=== PATIENT | female | born 1975 | race Caucasian/White ===

== ENCOUNTER 2016-04-21 21:39 | Emergency (ER) | payer OTHER ==
[2016-04-21] MEDS ORDERED: TORADOL IV ONE (22:14)
[2016-04-21] MEDS ORDERED: ZOFRAN IV ONE (22:14)
[2016-04-21 22:34] LABS: MANUAL DIFF NEEDED? NO
--- NOTE | 2016-04-21 22:34 | PROVIDER DOCUMENTATION ---
Addendum entered and electronically signed by Korey Light Scribe 04/21/16 23:42 : Departure - Departure Time of Disposition Order: 23:42 DIAGNOSIS: Kidney stone, Lung nodule seen on imaging study UTI (urinary tract infection) Qualifiers: Urinary tract infection type: site unspecified Hematuria presence: with hematuria Qualified Code(s): N39.0 - Urinary tract infection, site not specified Disposition: HOME 01 Certified Medical Emergency: Emergent Condition: Stable Additional Instructions: LEFT LOWER LOBE LUNG NODULE SEEN ON CT ED Follow Up Instructions: You have been treated by a care provider in the Emergency Department. These instructions are being provided to you so you can have an understanding of how to care for yourself upon discharge. Upon discharge from the Emergency Department, you are responsible for making arrangements for follow-up care by a physician of your choice. Take all prescribed medications as directed. Return to the Emergency Department immediately for any new or worsening symptoms. You may call the Physician Referral phone number at [phone] to obtain a list of Physicians who are taking new patients. Referrals: Eamon Roy MD [Primary Care Provider] - Original Note: HPI-General Adult - General Chief Complaint: Flank Pain Stated Complaint: KIDNEY STONE SX Time Seen by Provider: 04/21/16 22:13 Source: patient Allergies/Adverse Reactions: Patient Allergies Allergy/AdvReac Type Severity Reaction Status Date / Time Sulfa (Sulfonamide Allergy Severe SHORTNESS Verified 04/21/16 22:56 Antibiotics) OF BREATH Home Medications: Home Medication List Medication Instructions Recorded Confirmed Last Taken Type Alprazolam [Xanax] 0.5 mg PO 04/21/16 Unknown History - History of Present Illness -Gen Adult Nature of Presenting Problems: 40 YOWF PRESENTS TO ED WITH C/O PT'S STATES PT HAS RLQ PAIN AND RT FLANK PAIN. SYMPTOMS STARTED 1 TO 1 1/2 HRS [employer]. Location of Pain/Injury: reports: abdomen (RUQ) Pain Radiation: reports: flank (R) Quality of Pain: reports: aching Severity: reports: moderate Onset/Duration: reports: 1-3 hours ago Timing: reports: still present Context/Activities at Onset: reports: light activity Modifying Factors: improves with: nothing Similar Symptoms Previously?: No Recently seen or treated by another doctor?: No Review of Systems - Adult - REVIEW OF SYSTEMS - ADULT Constitutional: denies: chills, fever Eyes: reports: no symptoms reported Ears, Nose, Mouth & Throat: reports: no symptoms reported Cardiovascular: denies: chest pain, palpitations, syncope Respiratory: denies: cough, shortness of breath, wheezing Gastrointestinal: reports: abdominal pain (RLQ), nausea, vomiting. denies: diarrhea Genitourinary: reports: no symptoms reported Musculoskeletal: denies: back pain, neck pain Integumentary: reports: no symptoms reported Neurological: denies: dizziness/vertigo, headache/migraines, syncope Psychiatric: reports: no symptoms reported Endocrine: reports: no symptoms reported Hematologic/Lymphatic: reports: no symptoms reported Allergic/Immunologic: reports: no symptoms reported All Other Systems: Reviewed and Negative Past History - Adult - PAST MEDICAL HISTORY-ADULT Review of Records: reports: Nursing Assessment Review, Medications Reviewed - IMMUNIZATION STATUS Childhood Immunizations: See Nurse Assessment Flu Vaccine: See Nurse Assessment - SOCIAL HISTORY Smoking: quit greater than 1 year, cigarettes Substance Use: alcohol Alcohol Use Frequency: occasionally Number of drinks per typical drinking period:: 3-4 drinks Living Situation: family Physical Exam-General - CONSTITUTIONAL General Appearance: alert, moderate distress - EYES Eyes: PERRL/EOMI, pink conjunctivae - HEAD, EARS, NOSE, MOUTH & THROAT HENMT: normocephalic/atraumatic, moist mucous membranes - NECK Neck: non-tender, full range of motion, supple - RESPIRATORY Respiratory: chest non-tender, lungs clear, normal breath sounds - CARDIOVASCULAR Cardiovascular: normal peripheral pulses, regular rate, rhythm - GASTROINTESTINAL (ABDOMEN) Abdominal Exam: normal bowel sounds, soft, tenderness (RLQ) - LYMPHATIC Lymphatic: no adenopathy - MUSCULOSKELETAL Back Exam: other (RT FLANK) Extremity: normal range of motion, non-tender - SKIN Integumentary: normal color, normal turgor, warm/dry - NEUROLOGIC Neurologic: grossly normal - PSYCHIATRIC Psych/Mental Status: oriented x 3 Progress - PLAN OF CARE/RESULTS Progress/Plan/Lab Results: Laboratory Tests 04/21/16 04/21/16 04/21/16 22:29 22:29 22:40 WBC 7.65 RBC 4.49 Hgb 12.8 Hct 37.6 MCV 83.7 MCH 28.5 MCHC 34.0 RDW Std Deviation 14.3 Plt Count 277 MPV 12.0 H Immature Gran % (Auto) 0.4 Neut % (Auto) 55.8 Lymph % (Auto) 34.5 [place] % (Auto) 7.2 Eos % (Auto) 1.7 Baso % (Auto) 0.4 Immature Gran # (Auto) 0.03 Neut # (Auto) 4.27 Lymph # (Auto) 2.64 [place] # (Auto) 0.55 Eos # (Auto) 0.13 Baso # (Auto) 0.03 Sodium 139 Potassium 3.5 Chloride 100 Carbon Dioxide 20 L Anion Gap 20 BUN 21 Creatinine 0.6 Estimated GFR/1.73 m2 > 60 BUN/Creatinine Ratio 35 Glucose 104 Calculated Osmolality 281 Calcium 10.0 Urine Source CLEAN CATCH Urine Color YELLOW Urine Clarity VERY CLOUDY A Urine pH 6.0 Ur Specific [place] 1.025 Urine Protein 3+(500 mg/dL) A Urine Ketones 3+(Large) A Urine Blood 4+ Urine Nitrite NEGATIVE Urine Bilirubin 1+ A Urine Urobilinogen 4+(12 mg/dL) Urine Microscopic RBC 10-20 A Urine WBC 2+ A Urine Microscopic WBC TNTC A Ur Epithelial Cells >10 A Urine Bacteria 4+ Urine Glucose NEGATIVE Orders Category Date Time Status ABDOMEN/PELVIS W/O CONTRAST [CT] Stat Exams 04/21/16 22:26 Taken BMP [BASIC METABOLIC PANEL] [CHEM] Stat Lab 04/21/16 22:29 Completed CBC WITH ELECTRONIC DIFF [HEME] Stat Lab 04/21/16 22:[address] W/POSS RFLX CULT [URINALYSIS] Stat Lab 04/21/16 22:40 Completed URINE CULTURE [RM] Routine Lab 04/21/16 23:15 Ordered Ketorolac [Toradol] Med 04/21/16 22:14 Discontinued 30 mg IV NOW ONE Ondansetron [Zofran] Med 04/21/16 22:14 Discontinued 4 mg IV NOW ONE Vital Signs - 24 hr 04/21/16 22:07 Temperature 98 F Pulse Rate 78 Respiratory 22 Rate Blood Pressure 110/71 O2 Sat by Pulse 100 Oximetry - CT/MRI 1 CT Study: Renal Stone CT Results: RT DISTAL URETER KIDNEY STONE. Departure - Departure Time of Disposition Order: 23:30 DIAGNOSIS: Kidney stone UTI (urinary tract infection) Qualifiers: Urinary tract infection type: site unspecified Hematuria presence: with hematuria Qualified Code(s): N39.0 - Urinary tract infection, site not specified ; R31.9 - Hematuria, unspecified Disposition: HOME 01 Certified Medical Emergency: Emergent Condition: Stable Additional Instructions: ED Follow Up Instructions: You have been treated by a care provider in the Emergency Department. These instructions are being provided to you so you can have an understanding of how to care for yourself upon discharge. Upon discharge from the Emergency Department, you are responsible for making arrangements for follow-up care by a physician of your choice. Take all prescribed medications as directed. Return to the Emergency Department immediately for any new or worsening symptoms. You may call the Physician Referral phone number at [phone] to obtain a list of Physicians who are taking new patients. Attestation - Scribe Verification/Attestation Scribe:: Korey Light Acting as Scribe for:: Jorgito Billy Scribe documention review:: This chart was documented by a scribe and accurately reflects the service the provider performed and the decisions made by the provider.
[2016-04-21 22:39] LABS: BASO% 0.4 % (0.0-0.8); EOS# 0.13 X1000 (0.0-0.7); EOS% 1.7 % (0.0-10.0); HEMATOCRIT 37.6 % (37.0-47.0); HEMOGLOBIN 12.8 g/dL (12.0-16.0); IMM GRAN# 0.03 X1000 (0.0-0.04); IMM GRAN% 0.4 % (0.0-0.5); LYMPH# 2.64 X1000 (1.2-3.4); LYMPH% 34.5 % (20.5-51.1); MCH 28.5 PG (27-31); MCV 83.7 FL (81-99); MONO# 0.55 X1000 (0.11-0.59); MONO% 7.2 % (1.7-9.3); NEUT% 55.8 % (42.2-75.2); PLT 277 X1000 (130-400); RBC 4.49 XMIL (4.2-5.4)
[2016-04-21 23:01] LABS: AGAP 20; BUN 21 mg/dL (8-22); CHLORIDE 100 mmol/L (98-107); COSMO 281; POTASSIUM 3.5 mmol/L (3.5-5.1); SODIUM 139 mmol/L (136-145); TCO2 20 mmol/L (25-35)
[2016-04-21 23:03] LABS: URINE SOURCE CLEAN CATCH
[2016-04-21 23:08] LABS: BILIRUBIN URINE 1+ (NEGATIVE); BLOOD URINE 4+ (NEGATIVE); CLARITY VERY CLOUDY (CLEAR); COLOR YELLOW; GLUCOSE URINE NEGATIVE (NEGATIVE); LEUKOCYTES URINE 2+ (NEGATIVE); NITRITE URINE NEGATIVE (NEGATIVE); SP GRAVITY URINE 1.025; UROBILINOGEN URINE 4+(12 mg/dL)
[2016-04-21 23:13] LABS: URINE EPITHELIAL CELLS >10 /HPF (<10)
[2016-04-21 23:14] LABS: URINE CULTURE PL NEEDED? YES
[2016-04-21 23:15] LABS: URINE WBC TNTC /HPF (<10)
[2016-04-21] MEDS ORDERED: ROCEPHIN 1 GM/NS 50 ML IV STA (23:29)
[2016-04-21] MEDS ORDERED: DILAUDID IV ONE (23:31)
[2016-04-22] MEDS ORDERED: NS 1,000 ML IV ONE ×2 (00:22→01:18)
[2016-04-22] MEDS ORDERED: NS 1,000 ML ONE (00:23)
[2016-04-22] MEDS ORDERED: TORADOL IV ONE (01:17)
[2016-04-22] MEDS ORDERED: NORCO-5 PO ONE (01:25)
[2016-04-22] MEDS ORDERED: TORADOL ONE (01:26)
[2016-04-22 03:31] VITALS: BP 102/64
--- NOTE | 2016-04-22 11:33 | Diag Imaging Result Document ---
PROCEDURE NAME: ABDOMEN/PELVIS W/O CONTRAST - 04/21/2016 CT RENAL STONE SEARCH WITHOUT CONTRAST: A dose-reduction protocol was used. COMPARISON: 06/03/2014. FINDINGS: There is moderate hydronephrosis on the right. There is right hydroureter to the level of the upper true pelvis. There is a 3-4 mm calcification at this location which is compatible with stone at the distal right ureter. The stone is located approximately 5 cm proximal to the ureterovesical junction. There is no other renal stone identified. There is no left hydronephrosis. There is no evidence of bowel obstruction. The appendix appears normal. There is a small fat- containing umbilical hernia. There is no free air. There are postsurgical changes of the stomach. There has been previous cholecystectomy. There is a small nodular density at the posterior medial left lower lobe lung which is partially visualized on the superior most image of the exam. This is above the superior most level which was included on the 06/03/2014 exam. There is a partially calcified nodular density seen at this location on the 04/29/2014 exam, however, compatible with partially calcified granuloma from old granulomatous disease. IMPRESSION: 3-4 mm stone in distal right ureter approximately 5 cm proximal to the ureterovesical junction. Associated moderate right hydronephrosis. A [employer] physician provided preliminary results at 11:32 p.m. on 04/21/2016. MTDD
== END 2016-04-22 03:43 | disposition home or self-care (01) ==
LOC: P.ED 21:39
DX: N13.2 Hydronephrosis with renal and ureteral calculous obstruction (principal); N39.0 Urinary tract infection, site not specified; R31.9 Hematuria, unspecified; R91.1 Solitary pulmonary nodule; R10.31 Right lower quadrant pain; R10.9 Unspecified abdominal pain; R11.2 Nausea with vomiting, unspecified; R10.813 Right lower quadrant abdominal tenderness; Z87.891 Personal history of nicotine dependence
CPT/HCPCS: 74176; 80048; 81001; 85025; 87088; 96361; 96365; 96375; 96376; J0696; J1170; J1885; J2405; J7030